=== PATIENT | female | born 1990 | race Caucasian/White ===

== ENCOUNTER → 2019-06-26 | Outpatient (CLI) | payer OTHER | LOC: ULTRA 10:28 | DX: E04.9 Nontoxic goiter, unspecified (principal) ==

== ENCOUNTER → 2019-10-22 | Outpatient (CLI) | payer OTHER | LOC: CAT 10-14 14:19 | DX: E04.9 Nontoxic goiter, unspecified (principal) ==

== ENCOUNTER 2020-04-28 10:30 | Emergency (ER) | payer OTHER ==
[~2020-04-28] VITALS: Ht 177.8 cm; Wt 81.7 kg
[2020-04-28] MEDS ORDERED: SERTRALINE HCL100 MG PO (10:53)
[2020-04-28] MEDS ORDERED: CYMBALTA60 MG PO (10:53)
[2020-04-28] MEDS ORDERED: ZOCOR 10 MG TAB10 M1 PO (10:54)
[2020-04-28] MEDS ORDERED: REGLAN 5 MG TAB5 MG PO (10:54)
[2020-04-28] MEDS ORDERED: PROBIOTIC1 EAC7 PO (10:55)
[2020-04-28 11:27] LABS: CALCIUM 8.6 mg/dL (8.5-10.1); CREATININE 0.9 mg/dL (0.6-1.0); POTASSIUM 3.9 mmol/L (3.5-5.1)
[2020-04-28 12:18] VITALS: BP 114/74
== END 2020-04-28 12:19 | disposition home or self-care (01) ==
LOC: ER 10:30
PROVIDERS: Emergency Medicine
DX: E10.65 Type 1 diabetes mellitus with hyperglycemia (principal); E78.5 Hyperlipidemia, unspecified; F17.210 Nicotine dependence, cigarettes, uncomplicated; Z88.8 Allergy status to other drugs, medicaments and biological substances; Z79.899 Other long term (current) drug therapy

== ENCOUNTER → 2020-12-25 | Outpatient (CLI) | payer OTHER ==
[~2020-12-25] MED LIST: CYMBALTA60 MG PO; PROBIOTIC1 EAC7 PO; REGLAN 5 MG TAB5 MG PO; SERTRALINE HCL100 MG PO; ZOCOR 10 MG TAB10 M1 PO
== END ==
LOC: RAD 10:56
PROVIDERS: ATTEND Nurse Practitioner
DX: M54.9 Dorsalgia, unspecified (principal)